=== PATIENT | female | born 1985 ===

== ENCOUNTER 2018-10-15 06:40 | Day surgery (SDC) | payer OTHER ==
[2018-10-13 13:44] VITALS: BMI 28.8
[2018-10-15] MEDS ORDERED: ceFAZolin 1 gm in NS 2 GM/200 ML BAG IVPB ONE (07:03)
[2018-10-15] MEDS ORDERED: Morphine 10 mg/5 ml Oral Soln PO PRN (08:10)
[2018-10-15] MEDS ORDERED: Dextrose 5%/0.45% NS 1,000 ML IV SCH (08:15)
[2018-10-15] MEDS ORDERED: Propofol 10 mg/ml Inj (20 ML) ONE (08:50)
[2018-10-15] MEDS ORDERED: Midazolam 2 MG/2 ML VIAL ONE (08:50)
[2018-10-15] MEDS ORDERED: Lactated Ringer's 1,000 ML IV SCH (09:45)
[2018-10-15 11:30] VITALS: BP 103/53; PULSE 16; RESP 16; TEMP 97.8; O2SAT 97
--- NOTE | 2018-10-15 17:58 | OP ---
PROCEDURE DATE: 10/15/2018 PREOPERATIVE DIAGNOSIS: Large adenoids. POSTOPERATIVE DIAGNOSIS: Large adenoids. PROCEDURE: Adenoidectomy. SIGNIFICANT FINDINGS: Large adenoids. DESCRIPTION OF PROCEDURE: The patient was brought into room, placed in supine position. Anesthesia was initiated through an ET tube. Shoulder roll was placed, neck extended. The patient was draped in the usual manner. Red rubber catheters were inserted into nasal cavity, taken out of mouth and clamped in order to provide retraction of soft palate. Mirror was used to visualize the adenoids which were noted to be enlarged and removed using adenoid curettes. Bleeding was controlled using suction cautery and tonsil sponges. Red rubber catheters were removed. The mouth gag was taken out and removed. The patient was taken off anesthesia and taken to recovery room in stable manner. Ab Petersen MD
== END 2018-10-15 11:37 | disposition home or self-care (01) ==
LOC: C.SDS 06:40
PROVIDERS: ATTEND Otolaryngology
DX: J35.2 Hypertrophy of adenoids (principal)
CPT/HCPCS: 42831; 88304; J0690; J2250; J2270; J2405; J2704; J2765; J3010; J7040